=== PATIENT | male | born 1950 | race Caucasian/White ===

== ENCOUNTER 2019-12-16 06:50 | Inpatient (IN) | payer MEDICARE ==
[2019-12-09 11:36] LABS: HEMATOCRIT 46.7 % (42.0-52.0); HEMOGLOBIN 16.2 gm/dL (14.0-18.0); MCHC 34.8 g/dL (28.0-37.0); MPV 10.6 fl. (7.2-11.1); RBC 5.08 mil/uL (4.50-6.00); RDW-CV 13.6 % (10.5-14.5); WBC 5.7 thou/uL (4.0-11.0)
[2019-12-09 11:42] LABS: PROTIME 10.3 Seconds (9.20-11.50)
[2019-12-09 11:45] LABS: URINE BILIRUBIN NEGATIVE (Negative); URINE BLOOD NEGATIVE (Negative); URINE CLARITY CLEAR; URINE COLOR YELLOW; URINE GLUCOSE-RANDOM NEGATIVE (Negative); URINE KETONES NEGATIVE (Negative); URINE LEUKOCYTES-REFLEX NEGATIVE (Negative); URINE NITRITE-REFLEX NEGATIVE (Negative); URINE PROTEIN NEGATIVE (Negative); URINE SPECIFIC GRAVITY 1.025 (1.005-1.030); URINE UROBILINOGEN 0.2 E.U./dl (0.2-1.0)
[2019-12-09 11:57] LABS: ALBUMIN 3.9 g/dL (3.4-5.0); CALCIUM 8.8 mg/dL (8.5-10.1); CREATININE 1.3 mg/dL (0.6-1.3); POTASSIUM 4.3 mmol/L (3.5-5.1); TOTAL BILIRUBIN 0.4 mg/dL (<0.1-1.0); TOTAL PROTEIN 7.2 g/dL (6.4-8.2)
--- NOTE | 2019-12-09 14:59 | EKG ---
[place] [address] ELECTROCARDIOGRAM REPORT Name: INGRID GUTIERREZ Dex Room: PRE IN [facility]#: [id number] Admission: Attend Phys: Alysia Ennis Discharge: Date of : 50 Report #: [id number] THIS REPORT FOR: //name// [facility] Test Date: 2019-12-09 Test Time: 11:47:42 Pat Name: INGRID GUTIERREZ Department: Room: Gender: M [employer] Network Engineer: : 1950 Requested By: Prosper Samuel Order Number: [id number] Reading MD: Vick Diego Measurements Intervals [place] Rate: 78 P: 21 ND: 168 QRS: 33 QRSD: 78 T: 41 QT: 374 QTc: 426 Interpretive Statements Sinus rhythm Abnormal R-wave progression, early transition No previous ECG available for comparison Electronically Signed On 12-09-2019 14:58:44 PC MAINTENANCE TECHNICIAN by Vick Diego [email or web address] <ELECTRONICALLY SIGNED> By: Vick Diego MD, [facility] 12/09/19 1458 [id number] [id number] Vick Diego MD, FACC /EPI
[~2019-12-16] VITALS: Ht 180.3 cm; Wt 97.5 kg
[~2019-12-16 06:50] MED LIST: NOHOMEMEDICATIONS
[2019-12-16 07:40] VITALS: BP 141/85
[2019-12-16 16:00] VITALS: BP 109/63
[2019-12-16 16:43] VITALS: BP 114/63
--- NOTE | 2019-12-16 17:43 | NUR ---
PT ARRIVED FROM PACU ABOUT 1530. A&Ox4. VITALS STABLE. PAIN CONTROLLED, DENIED PAIN MEDS. REGULAR DIET. ON 2LO2 WITH CAPNO. DRESSING C/D/I. TEDs, SCDs, ICE PACK AND HEMOVAC IN PLACE. IV PATENT. UP WITH 1. WORKED WITH THERAPY. FALL PRECAUTIONS IN PLACE. CALL LIGHT WITHIN REACH. WILL CONTINUE TO MONITOR.
[2019-12-16 19:23] VITALS: BP 125/68
[2019-12-17 01:46] VITALS: BP 109/53
--- NOTE | 2019-12-17 04:44 | NUR ---
ASSUMED CARE OF PT 12/16/19 AT APPROX 1915, PT A&OX4, PT ON 2L NC WITH CAPNO, HEMOVAC IN PLACE, IV FLUIDS INFUSING, PAIN MEDS REQUESTED AND GIVEN ORDERED, ASSESSMENTS AND HOURLY ROUNDINGS COMPLETED, WILL CONTINUE TO MONITOR.
[2019-12-17 07:23] LABS: HEMATOCRIT 39.2 % (42.0-52.0); HEMOGLOBIN 13.3 gm/dL (14.0-18.0)
[2019-12-17 07:55] VITALS: BP 118/62
--- NOTE | 2019-12-17 15:00 | NUR ---
SPOKE WITH PT.IN ROOM. DAUGHTER AT BEDSIDE. HE STATED HE LIVES ALONE. IS NORMALLY INDEPENDENT. EITHER HIS DAUGHTER OR SISTER WILL STAY WITH HIM FOR A FEW DAYS. HE HAS A FWW. HE WOULD LIKE TO HAVE 2 WEEKS OF HH FIRST AND TRANSISTION TO OUTPT. HE WOULD LIKE TO USE [facility]. WILL SET UP TOMORROW. CM CALLED IN XARELTO PRESCRITPTION, WRITTEN, TO [facility] IN [place], [place] [phone]. COPAY WILL BE $18.75. THEY WILL ORDER AND IT SHOULD BE IN BY NOON TOMORROW. WILL INFORM PT.
[2019-12-17 16:00] VITALS: BP 139/73
[2019-12-17 17:07] VITALS: BP 118/62
--- NOTE | 2019-12-17 18:32 | NUR ---
PT A&Ox4. VITALS STABLE. PAIN CONTROLLED WITH NORCO. DENIED N/V. UP WITH 1 STAND BY. DRAIN PULLED. IV PATENT, SL. TOLERATING DIET. PT REQUESTED TO STAY ONE MORE NIGHT. FALL PRECAUTIONS IN PLACE. CALL LIGHT WITHIN REACH. WILL CONTINUE TO MONITOR.
[2019-12-17 19:25] VITALS: BP 112/78
[2019-12-18] VITALS: BP 142/68; BP 166/87
[2019-12-18 03:27] LABS: HEMATOCRIT 36.8 % (42.0-52.0); HEMOGLOBIN 12.8 gm/dL (14.0-18.0)
[2019-12-18 04:00] VITALS: BP 104/65
--- NOTE | 2019-12-18 04:26 | NUR ---
ASSUMED CARE OF PT 12/17/19 AT APPROX 1915, PT A&OX4, ON ROOM AIR, VSS, PT USING IS, PAIN MEDS REQUESTED AND GIVEN ORDERED, ASSESSMENTS AND HOURLY ROUNDINGS COMPLETED, WILL CONTINUE TO MONITOR.
[2019-12-18 08:30] VITALS: BP 108/61
[2019-12-18] MEDS ORDERED: PERCOCET PO (09:20)
[2019-12-18] MEDS ORDERED: XARELTO10 MG PO (09:20)
--- NOTE | 2019-12-18 10:50 | NUR ---
PT.TO DISCHARGE WITH PHYSICAL THERAPY. HE WOULD LIKE TO USE [facility]. CM SPOKE WITH MASHA/[facility]. SHE SAID THEY ACCEPT PT.'S INSURANCE AND GO TO [facility]. FAXED REFERRAL INFORMATION AND DISCHARGE ORDERS TO HER [phone].
[2019-12-18 12:01] VITALS: BP 118/62
[2019-12-18 12:35] VITALS: BP 118/62
--- NOTE | 2019-12-18 12:38 | NUR ---
PATIENT AMBULATED WITH WALKER AND ASSISTANCE THIS MORNING.ALL SAFETY MEASURES MAINTAINED. DISCHARGE PAPERWORK REVIEWED WITH AND GIVEN TO PATIENT AND FAMILY. PATIENT AND PATIENT'S FAMILY DENY FURTHER NEEDS AND QUESTIONS AT THIS TIME. IV REMOVED.
--- NOTE | 2019-12-23 11:12 | OP ---
[address] [address] OPERATIVE REPORT Name: BRENDAINGRID Dex Room: [address]#: [id number] Admission: 12/16/19 Attend Phys: Alysia Ennis Discharge: 12/18/19 Date of : 50 Report #: [id number] THIS REPORT FOR: //name// cc: CARLIN KOEHLER THEODORE J. DO ~ THIS REPORT FOR: //name// CC: Prosper Ann DATE OF SERVICE: 12/16/2019 PREOPERATIVE DIAGNOSIS: Left hip osteoarthritis. POSTOPERATIVE DIAGNOSIS: Left hip osteoarthritis. PROCEDURE: Left total hip arthroplasty. SURGEON: Prosper Samuel II, D.O. SINGLE PASS SOIL STABILIZER OPERATOR: WAYNE Pineda. ANESTHESIA: General endotracheal. ESTIMATED BLOOD LOSS: 400 mL. ANTIBIOTICS: Ancef preoperatively. DRAINS: Medium Hemovac. COMPLICATIONS: None. CONDITION OF THE PATIENT: Stable to recovery room. IMPLANTS: Listed in operative record and progress note. BRIEF HISTORY: The patient is seen in preoperative area. The patient had prior hip fracture with shortening of his leg due to this fracture and prior in situ pinning. These pins were previously removed to allow for healing of the lateral cortex prior to his total hip replacement. The patient was subsequently wished to undergo total hip replacement. He is discussed leg length changes due to the previous shortening of the bone; however, continued length of his tissues around this area. The patient verbalized understanding and wished [place] [address] OPERATIVE REPORT Name: INGRID GUTIERREZ Room: [address] IN M.R.#: [id number] Admission: 12/16/19 Attend Phys: Alysia Ennis Discharge: 12/18/19 Date of : 50 Report #: [id number] DESCRIPTION OF PROCEDURE: The patient was taken to the operative suite and placed supine on the operating table, given appropriate anesthesia. The patient's operative hip was placed in the [place] table leg morris and sterilely prepped and draped in the supine position. Surgery began by longitudinal incision over the anterior portion of the hip. It is carried down to subcutaneous tissues. A small florida was made in the tensor fascia. It was then split along its fibers and retracted laterally. An H capsulotomy was then performed and careful hemostasis was obtained with electrocautery and Aquamantys. The head and neck cutting alignment guide was then checked with fluoroscopic guidance. Appropriate cut was made to the head and neck and this was removed. Attention was then turned to the acetabulum. Excess labrum was removed. It was then reamed in sequential fashion up to appropriate size. This showed excellent bleeding bone and excellent position on fluoroscopic guidance. The acetabular cup was then malleted into position and secured with cancellous screws. The metal liner was then applied. The patient's leg was then rotated and extended in the [place] table to expose the femur. It was then broached in sequential fashion up to appropriate size. The appropriate neck was then trialed in with appropriate head length and showed excellent fit and fill and excellent stability of the hip throughout all range of motion. These trials were removed. The final stem was then malleted into position and the final head and neck was then malleted into position. It was reduced in appropriate fashion, checked with C-arm for appropriate leg length, showed excellent leg length throughout the exam without evidence of dislocation upon range of motion and shuck testing. Wound was then copiously irrigated. Hemostasis was obtained with electrocautery and Aquamantys. Pain cocktail was injected. PRP gel was sprayed throughout the internal aspects of the hip and the drain was activated. The H capsulotomy was then closed with #1 Vicryl in [id number] fashion. Tensor fascia was closed with #1 Vicryl in running fashion. Skin was closed with 2-0 Vicryl and running 3-0 Monocryl with Dermabond and sterile dressing applied. The patient transported to recovery room in stable condition. Counts were correct throughout the procedure. <ELECTRONICALLY SIGNED> By: Prosper Samuel II, DO 12/23/19 1112 [id number] [id number] Samuel II, DO /nt
== END 2019-12-18 12:32 | disposition home health service (06) | DRG 470 ==
LOC: M.TBA 06:50 → M.PRE 09:59 → M.ORTHSURG 15:07 → M.PRE 15:16 → M.ORTHSURG 12-18 12:32
PROVIDERS: Orthopaedic Surgery; ADMIT Internal Medicine
PROC: 0SRB0JA Replacement of Left Hip Joint with Synthetic Substitute, Uncemented, Open Approach (ICD-10-PCS; principal; 2019-12-16)
DX: M16.12 Unilateral primary osteoarthritis, left hip (principal); D62 Acute posthemorrhagic anemia; Z96.1 Presence of intraocular lens; Z28.21 Immunization not carried out because of patient refusal; Z90.49 Acquired absence of other specified parts of digestive tract; Z98.42 Cataract extraction status, left eye; Z98.41 Cataract extraction status, right eye; Z72.89 Other problems related to lifestyle